=== PATIENT | male | born 1980 | race Caucasian/White ===

== ENCOUNTER 2022-03-08 13:22 | Outpatient (CLI) | payer BC ==
[2022-03-08 19:29] LABS: BASOPHILS # (AUTO) 0.1 10^3/uL (0.0-0.1); BASOPHILS % (AUTO) 0.8 %; EOSINOPHILS # (AUTO) 0.1 10^3/uL (0.0-0.7); EOSINOPHILS % (AUTO) 1.3 %; HCT - HEMATOCRIT 47.6 % (42.0-52.0); HGB - HEMOGLOBIN 16.1 g/dL (14.0-18.0); LYMPHOCYTES # (AUTO) 1.6 10^3/uL (1.5-3.5); LYMPHOCYTES % (AUTO) 25.6 %; MEAN CORPUSCULAR HEMOGLOBIN 32.3 pg (27.0-31.0); MEAN CORPUSCULAR HGB CONC 33.8 g/dL (32.0-36.0); MEAN CORPUSCULAR VOLUME 95.6 fL (80.0-94.0); MEAN PLATELET VOLUME 11.4 fL (7.4-11.4); MONOCYTES # (AUTO) 0.5 10^3/uL (0.0-1.0); MONOCYTES % (AUTO) 8.4 %; NEUTROPHILS # (AUTO) 3.9 10^3/uL (1.5-6.6); NEUTROPHILS % (AUTO) 63.6 %; PLT - PLATELET COUNT 278 10^3/uL (130-450); RED BLOOD COUNT 4.98 10^6/uL (4.70-6.10); RED CELL DISTRIBUTION WIDTH 11.9 % (12.0-15.0); WHITE BLOOD COUNT 6.1 x10^3/uL (4.8-10.8)
[2022-03-08 19:56] LABS: % IRON SATURATION 18 % (20-50); ALBUMIN 4.5 g/dL (3.2-5.5); ALBUMIN/GLOBULIN RATIO 1.3 (1.0-2.2); ALKALINE PHOSPHATASE 75 IU/L (42-121); ALT ALANINE AMINOTRANSFERASE 17 IU/L (10-60); AST ASPARTATE AMINOTRANSFERASE 20 IU/L (10-42); BILIRUBIN,TOTAL 0.8 mg/dL (0.2-1.0); BUN - BLOOD UREA NITROGEN 23 mg/dL (6-20); CALCIUM 9.4 mg/dL (8.5-10.3); CARBON DIOXIDE - CO2 27 mmol/L (21-32); CHLORIDE 104 mmol/L (101-111); CHOL/HDL RATIO 4.4 (<5.0); CHOLESTEROL 186 mg/dL; CREATININE 0.9 mg/dL (0.6-1.2); GFR - MDRD 94 (>89); GLUCOSE 108 mg/dL (70-100); HDL CHOLESTEROL 42 mg/dL; IRON 79 ug/dL (45-182); LDL CHOLESTEROL,CALCULATED 128 mg/dL; POTASSIUM 3.9 mmol/L (3.5-5.0); SODIUM 140 mmol/L (135-145); TOTAL IRON BINDING CAPACITY 437 ug/dL (250-450); TOTAL PROTEIN 8.1 g/dL (6.7-8.2); TRANSFERRIN 312 mg/dL (180-329); TRIGLYCERIDES 82 mg/dL; VLDL CHOLESTEROL 16 mg/dL
[2022-03-08 20:01] LABS: THYROID STIMULATING HORMONE 2.01 uIU/mL (0.34-5.60)
[2022-03-08 20:09] LABS: FERRITIN 27.8 ng/mL (23.9-336.2)
[2022-03-08 20:12] LABS: FOLATE 9.19 ng/mL (5.90 - >24.8)
[2022-03-09 21:14] LABS: ESTIMATED AVERAGE GLUCOSE 94 mg/dL (70-100); HEMOGLOBIN A1c% 4.9 % (4.27-6.07)
== END 2022-03-08 13:23 | disposition home or self-care (01) ==
LOC: LAB.N 13:22
PROVIDERS: ATTEND Nurse Practitioner Family
DX: Z00.01 Encounter for general adult medical examination with abnormal findings (principal); E53.8 Deficiency of other specified B group vitamins; E61.1 Iron deficiency; Z91.89 Other specified personal risk factors, not elsewhere classified; L64.9 Androgenic alopecia, unspecified; Z13.220 Encounter for screening for lipoid disorders; Z13.1 Encounter for screening for diabetes mellitus; F41.8 Other specified anxiety disorders
CPT/HCPCS: 36415; 80053; 80061; 82607; 82728; 82746; 83036; 83540; 83721; 84153; 84443; 84466; 85025

== ENCOUNTER 2022-08-30 09:18 | Outpatient (CLI) | payer OTHER | END 2022-08-30 09:19 | disposition critical access hospital (66) | LOC: EMS 09:18 | DX: R10.32 Left lower quadrant pain (principal); R10.814 Left lower quadrant abdominal tenderness | CPT/HCPCS: A0425; A0429 ==

== ENCOUNTER 2022-08-30 09:37 | Emergency (ER) | payer BC, OTHER ==
[2022-08-30] MEDS ORDERED: SODIUM CHLORIDE 0.9% 1,000 ML IV STA (09:50)
[2022-08-30] MEDS ORDERED: KETOROLAC 15 MG/ML VIAL IVP STA (09:50)
[2022-08-30] MEDS ORDERED: MORPHINE 10 MG/ML VIAL IVP STA (09:50)
[2022-08-30] MEDS ORDERED: ONDANSETRON 4 MG/2 ML VIAL IVP STA (09:50)
--- NOTE | 2022-08-30 09:51 | ED Physician Documentation ---
PD HPI ABD PAIN - Stated complaint Stated Complaint: ABD PX - History obtained from History obtained from: Patient, EMS - History of Present Illness Timing - onset: How many hours ago (1) Timing - duration: Hours (1) Timing - details: Abrupt onset, Still present Quality: Aching, Sharp, Pain Location: LUQ Radiation: Left flank Improved by: No: Eating, Laying still Worsened by: No: Eating, Moving, Breathing, Palpation Associated symptoms: Nausea, Vomiting, Near syncope / syncope. No: Fever, Diarrhea, Constipation, Dysuria Similar symptoms before: Has not had sx before Recently seen: Not recently seen Review of Systems Constitutional: denies: Fever, Chills, Myalgias Nose: denies: Rhinorrhea / runny nose, Congestion Throat: denies: Sore throat Respiratory: denies: Cough GI: reports: Abdominal Pain, Nausea, Vomiting (after the pain started inten sely.). denies: Constipation, Diarrhea : denies: Dysuria, Hematuria Skin: denies: Rash, Lesions Neurologic: denies: Focal weakness, Numbness PD PAST MEDICAL HISTORY - Past Medical History Cardiovascular: None Respiratory: None Endocrine/Autoimmune: None GI: None - Present Medications Home Medications: Ambulatory Orders Medication Instructions Recorded Confirmed Naproxen 500 mg PO BID #20 tab 08/30/22 Ondansetron Odt [Zofran] 4 mg TL Q6H PRN #10 tablet 08/30/22 Oxycodone HCl/Acetaminophen 1 each PO Q6H PRN #20 tablet 08/30/22 [Percocet 5-325 mg Tablet] Tamsulosin [Flomax] 0.4 mg PO DAILY #5 cap 08/30/22 - Allergies Allergies/Adverse Reactions: Allergies Allergy/AdvReac Type Severity Reaction Status Date / Time No Known Drug Allergies Allergy Verified 08/30/22 10:16 PD ED PE NORMAL - Vitals Vital signs reviewed: Yes - General General: Alert and oriented X 3, Well developed/nourished, Other (appears in considerable pain, pale and sweaty. ) - Cardiac Cardiac: RRR, No murmur - Respiratory Respiratory: Clear bilaterally - Abdomen Abdomen: Normal bowel sounds, Soft, Non distended, No organomegaly, Other (tender left mid to upper abd and left Cva tender to percussion. ) - Back Back: No spinal TTP - Derm Derm: Normal color, Warm and dry - Extremities Extremities: Normal ROM s pain, No edema, No calf tenderness / cord - Neuro Neuro: Alert and oriented X 3, No motor deficit, Normal speech Results - Vitals Vitals: Oxygen O2 Source Room air - Labs Labs: Laboratory Tests 08/30/22 08/30/22 08/30/22 10:05 10:05 12:30 WBC 9.0 RBC 4.45 L Hgb 14.2 Hct 41.1 L MCV 92.4 MCH 31.9 H MCHC 34.5 RDW 11.8 L Plt Count 239 MPV 10.7 Neut # (Auto) 7.3 H Lymph # (Auto) 1.2 L [place] # (Auto) 0.5 Eos # (Auto) 0.0 Baso # (Auto) 0.0 Absolute Nucleated RBC 0.00 Nucleated RBC % 0.0 Sodium 141 Potassium 3.2 L Chloride 108 Carbon Dioxide 18 L Anion Gap 15.0 H BUN 19 Creatinine 1.1 Estimated GFR (MDRD) 75 L Glucose 138 H Calcium 9.1 Total Bilirubin 1.1 H AST 26 ALT 21 Alkaline Phosphatase 58 Total Protein 7.4 Albumin 4.3 Globulin 3.1 Albumin/Globulin Ratio 1.4 Lipase 33 Urine Color YELLOW Urine Clarity CLEAR Urine pH 6.5 Ur Specific [place] 1.010 Urine Protein NEGATIVE Urine Glucose (UA) NEGATIVE Urine Ketones 40 H Urine Occult Blood NEGATIVE Urine Nitrite NEGATIVE Urine Bilirubin NEGATIVE Urine Urobilinogen 0.2 (NORMAL) Ur Leukocyte Esterase NEGATIVE Ur Microscopic Review NOT INDICATED Urine Culture Comments NOT INDICATED - Rads (name of study) abd/pelvic ct Radiology: Prelim report reviewed (left proximal urteral stone 4 mm. mild hydro.), See rad report PD MEDICAL DECISION MAKING - ED course Complexity details: reviewed results, re-evaluated patient (much improvement on pain level to just mild, with improved appearance of comfort and improved color. ), considered differential (consider kidney stone likely, but also sbo, perforation, vascular such as aneurysm. ), d/w patient Departure - Departure Disposition: 01 Home, Self Care Clinical Impression: Left sided abdominal pain, Ureterolithiasis Condition: Stable Record reviewed to determine appropriate education?: Yes Instructions: ED Stone Renal W Colic Follow-Up: Carlita Worthy MD [Physician No Access] - Prescriptions: Tamsulosin [Flomax] 0.4 mg PO DAILY #5 cap Naproxen 500 mg PO BID #20 tab Oxycodone HCl/Acetaminophen [Percocet 5-325 mg Tablet] 1 each PO Q6H PRN #20 tablet PRN Reason: pain Ondansetron Odt [Zofran] 4 mg TL Q6H PRN #10 tablet PRN Reason: Nausea / Vomiting Comments: You do have a 4 mm ureteral stone on the left side accounting for your pain. It is still fairly high up in the ureter but is of a size that should be able to pass the majority of the time over the next several days or so. We treat these typically with adequate hydration. Also anti-inflammatory such as naproxen twice daily with food. Tamsulosin can try to help reduce ureteral spasms and promote passage of the sto ne. Otherwise main treatments are time for it to try to pass and pain control. Use Tylenol every 4-6 hours if needed for pain or Percocet if needed for worse pain. I sent your prescriptions to [facility] pharmacy. Follow-up with your primary care if not improving well over the next several days to week. They can refer you to urology if needed. I am prescribing a short course of narcotic pain medication for you. These are potentially dangerous and addictive medications that should be used carefully. These medications may constipate you. Take an [id number] stool softener such as docusate twice daily with plenty of water while taking these medications. If you go 24 hours without a bowel movement, take [id number] MiraLAX, per package instructions. Do not drink or drive while taking these medications. If you received narcotic or sedating medications while in the emergency department do not drive for 24 hours. Store this medication in a safe, secure place and out of reach of children. It is a violation of federal law to give or sell this medication to another person or to use in a manner other than prescribed. The ED will not refill narcotic prescriptions, including prescriptions lost or stolen. You can dispose of unwanted medications at the [facility]'s office or at several pharmacies such as [facility]. Discharge Date/Time: 08/30/22 14:01
[2022-08-30] MEDS ORDERED: iohexoL-300 100 ML VIAL ONE (09:54)
[2022-08-30 10:19] LABS: BASOPHILS % (AUTO) 0.4 %; EOSINOPHILS % (AUTO) 0.2 %; HCT - HEMATOCRIT 41.1 % (42.0-52.0); HGB - HEMOGLOBIN 14.2 g/dL (14.0-18.0); LYMPHOCYTES # (AUTO) 1.2 10^3/uL (1.5-3.5); LYMPHOCYTES % (AUTO) 12.8 %; MEAN CORPUSCULAR HEMOGLOBIN 31.9 pg (27.0-31.0); MEAN CORPUSCULAR HGB CONC 34.5 g/dL (32.0-36.0); MEAN CORPUSCULAR VOLUME 92.4 fL (80.0-94.0); MEAN PLATELET VOLUME 10.7 fL (7.4-11.4); MONOCYTES # (AUTO) 0.5 10^3/uL (0.0-1.0); MONOCYTES % (AUTO) 5.3 %; NEUTROPHILS # (AUTO) 7.3 10^3/uL (1.5-6.6); NEUTROPHILS % (AUTO) 81.2 %; PLT - PLATELET COUNT 239 10^3/uL (130-450); RED BLOOD COUNT 4.45 10^6/uL (4.70-6.10); RED CELL DISTRIBUTION WIDTH 11.8 % (12.0-15.0)
[2022-08-30 10:35] LABS: ALBUMIN 4.3 g/dL (3.2-5.5); ALBUMIN/GLOBULIN RATIO 1.4 (1.0-2.2); BILIRUBIN,TOTAL 1.1 mg/dL (0.2-1.0); CALCIUM 9.1 mg/dL (8.5-10.3); CREATININE 1.1 mg/dL (0.6-1.2); POTASSIUM 3.2 mmol/L (3.5-5.0); TOTAL PROTEIN 7.4 g/dL (6.7-8.2)
[2022-08-30] MEDS ORDERED: iohexoL-300 100 ML VIAL IVP ONE (12:19)
--- NOTE | 2022-08-30 12:42 | CT Report ---
PROCEDURE: CT abdomen pelvis with contrast INDICATIONS: LLQ Abdominal pain, diverticulitis suspected CONTRAST: 100ml omni 300 TECHNIQUE: After the administration of contrast, 5 mm thick sections acquired from the diaphragms to the sym physis. 5 mm thick coronal and sagittal reformats were acquired. For radiation dose reduction, the following was used: automated exposure control, adjustment of mA and/or kV according to patient size . COMPARISON: None. FINDINGS: Image quality: Excellent. ABDOMEN: Lung bases: Lung bases are clear. Heart size is normal. Solid organs: Liver and spleen are normal in size and enhancement. Gallbladder unremarkable. Bilia ry system is non dilated. Pancreas enhances normally. No adrenal nodules. 4 mm calculus in the proximal left ureter results in moderate left hydronephrosis. Additional 5 mm no nobstructive left renal calculus. No calculi on the right. Peritoneum and bowel: Bowel loops demonstrate normal wall thickness and caliber. No free fluid or a ir. No evidence of diverticulosis or diverticulitis Nodes and vessels: No retroperitoneal or mesenteric adenopathy by size criteria. Aorta and inferior vena cava are normal in size. Miscellaneous: No ventral hernias. PELVIS: Genitourinary: Bladder wall thickness is normal. Miscellaneous: Bilateral inguinal hernias containing fat without bowel involvement Bones: No suspicious bony lesions. No vertebral body compression fractures. IMPRESSION: 1. Small 4 mm calculus in the proximal left ureter results in moderate left hydronephrosis. 2. No evidence of diverticulitis Reviewed by: Breezy Mckenna MD on 08/30/2022 11:41 AM [facility] Approved by: Breezy Mckenna MD on 08/30/2022 11:41 AM [facility] Station ID: [id number]
[2022-08-30 12:58] LABS: BILIRUBIN,URINE NEGATIVE (NEGATIVE); GLUCOSE, URINE (UA) NEGATIVE (NEGATIVE); KETONES,URINE (UA) 40 mg/dL (NEGATIVE); LEUKOCYTE ESTERASE, URINE NEGATIVE (NEGATIVE); NITRITE,URINE NEGATIVE (NEGATIVE); OCCULT BLOOD,URINE NEGATIVE (NEGATIVE); PH,URINE 6.5 PH (5.0-7.5); PROTEIN,URINE NEGATIVE (NEGATIVE); UROBILINOGEN,URINE 0.2 (NORMAL) E.U./dL (NORMAL)
[2022-08-30 12:59] LABS: CLARITY,URINE CLEAR (CLEAR)
[2022-08-30 13:06] VITALS: BP 110/64
[2022-08-30] MEDS ORDERED: MORPHINE 2 MG/ML CARPUJECT IVP STA (13:15)
[2022-08-30] MEDS ORDERED: TAMSULOSIN 0.4 MG CAPSULE PO STA (13:15)
== END 2022-08-30 14:01 | disposition home or self-care (01) ==
LOC: EDUNIT# → ED 09:37
DX: N13.2 Hydronephrosis with renal and ureteral calculous obstruction (principal)
CPT/HCPCS: 36415; 74177; 80053; 81003; 83690; 85025; 96374; 96375; 99284; A9270; Q9967; 81001; 87086

== ENCOUNTER 2023-01-29 08:00 | Outpatient (CLI) | payer OTHER | END 2023-01-29 23:59 | disposition home or self-care (01) | LOC: LAB.N 08:00 | PROVIDERS: ATTEND Specialist | DX: R30.0 Dysuria (principal) | CPT/HCPCS: 87086 ==

== ENCOUNTER 2023-02-05 08:00 | Outpatient (CLI) | payer OTHER ==
[2023-02-06 00:34] LABS: CHLAMYDIA TRACHOMATIS DNA NEGATIVE (NEGATIVE); NEISSERIA GONORRHOEAE DNA NEGATIVE (NEGATIVE); TRICHOMONAS VAGINALIS DNA NEGATIVE (NEGATIVE)
== END 2023-02-05 23:59 | disposition home or self-care (01) ==
LOC: LAB.N 08:00
PROVIDERS: ATTEND Specialist
DX: R30.0 Dysuria (principal); R10.30 Lower abdominal pain, unspecified
CPT/HCPCS: 36415; 80053; 85025; 87491; 87591; 87661

== ENCOUNTER 2023-02-05 12:30 | Outpatient (CLI) | payer OTHER ==
[2023-02-05 17:50] LABS: BASOPHILS % (AUTO) 0.7 %; EOSINOPHILS # (AUTO) 0.1 10^3/uL (0.0-0.7); EOSINOPHILS % (AUTO) 1.4 %; HCT - HEMATOCRIT 42.7 % (42.0-52.0); HGB - HEMOGLOBIN 14.1 g/dL (14.0-18.0); LYMPHOCYTES # (AUTO) 1.7 10^3/uL (1.5-3.5); LYMPHOCYTES % (AUTO) 29.6 %; MEAN CORPUSCULAR HEMOGLOBIN 31.9 pg (27.0-31.0); MEAN CORPUSCULAR VOLUME 96.6 fL (80.0-94.0); MEAN PLATELET VOLUME 10.5 fL (7.4-11.4); MONOCYTES # (AUTO) 0.5 10^3/uL (0.0-1.0); NEUTROPHILS # (AUTO) 3.3 10^3/uL (1.5-6.6); NEUTROPHILS % (AUTO) 59.1 %; PLT - PLATELET COUNT 264 10^3/uL (130-450); RED BLOOD COUNT 4.42 10^6/uL (4.70-6.10); RED CELL DISTRIBUTION WIDTH 12.1 % (12.0-15.0); WHITE BLOOD COUNT 5.7 x10^3/uL (4.8-10.8)
[2023-02-05 18:26] LABS: ALBUMIN 4.3 g/dL (3.2-5.5); ALBUMIN/GLOBULIN RATIO 1.5 (1.0-2.2); BILIRUBIN,TOTAL 0.6 mg/dL (0.2-1.0); POTASSIUM 4.2 mmol/L (3.5-5.0); TOTAL PROTEIN 7.1 g/dL (6.7-8.2)
== END 2023-02-05 12:45 | disposition home or self-care (01) ==
LOC: LAB.N 12:30
PROVIDERS: ATTEND Specialist
DX: R10.30 Lower abdominal pain, unspecified (principal)
CPT/HCPCS: 36415; 80053; 85025